=== PATIENT | female | born 1970 | race African-American/Black ===

== ENCOUNTER 2024-06-19 08:55 | Emergency (ER) | payer BC, SELFPAY ==
[2024-06-19 09:06] VITALS: BP 168/100; PULSE 59; RESP 16; TEMP 35.7; O2SAT 98; BMI 32.9
--- NOTE | 2024-06-19 09:26 | ED_ITS ---
HPI - General Adult General Chief complaint: Skin/Abscess/Foreign Body Stated complaint: Facial swelling poss allergic reaction Time Seen by Provider: 06/19/24 08:57 History of Present Illness HPI narrative: [age] year old black female from [place] who works for the [employer] ent presents with left facial swelling. She is in no distress, very pleasant, had some swelling in her left cheek area, she took Benadryl this morning and it got markedly better. She had this about 6 weeks ago as well. She can not really associated any new allergens, new detergents, new food. This happened 6 weeks ago as mention. She is not on an GUSTAVO-inhibitor. Six weeks ago she has stopped amlodipine for blood pressure and her blood pressures been reasonable. It is little bit elevated today. 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 She is planning on seeing an ferry engineer when she returns back to [place], no throat tightening tongue swelling or difficulty breathing. Related Data Home Medications ?Medication ?Instructions ?Recorded ?Confirmed No Known Home Medications 06/19/24 06/19/24 Allergies Allergy/AdvReac Type Severity Reaction Status Date / Time [place] Allergy Verified 06/19/24 09:05 chili Allergy Uncoded 06/19/24 09:05 Review of Systems Status of ROS: Reports: 6 or more systems reviewed and unremarkable except as noted in History and below Exam Narrative: Exam Narrative: Objective: Patient's vital signs are within normal limits with the exception of her blood pressure slightly elevated 160/100, O2 sats 90% on room air Alert or x3 no distress Very pleasant There is some mild swelling over the left mandibular area, no palpable abscess or mass. Patient reports that it is markedly better since taking the Benadryl. Good peripheral perfusion Neurologic nonfocal Const: Vital Signs, click to edit/add: Vital Signs - 24 hr 06/19/24 09:06 Temperature 96.3 F L Pulse Rate [Pulse Oximeter] 59 L Respiratory Rate 16 Blood Pressure [Ri ght Upper Arm] 168/100 H Pulse Oximetry 98 Oxygen Delivery Me thod Room Air Course Vital Signs Vital signs: Initial Vital Signs Temperature 96.3 F L 06/19/24 09:06 Temperature Source Temporal Artery Scan 06/19/24 09:06 Pulse Rate 59 L 06/19/24 09:06 Pulse Rhythm Regular 06/19/24 09:06 Respiratory Rate 16 06/19/24 09:06 Blood Pressure 168/100 H 06/19/24 09:06 Blood Pressure Mean 122 H 06/19/24 09:06 Pulse Oximetry 98 06/19/24 09:06 Oxygen Delivery Method Room Air 06/19/24 09:06 Vital Signs Temperature 96.3 F L 06/19/24 09:06 Pulse Rate 59 L 06/19/24 09:06 Respiratory Rate 16 06/19/24 09:06 Blood Pressure 168/100 H 06/19/24 09:06 Pulse Oximetry 98 06/19/24 09:06 Oxygen Delivery Method Room Air 06/19/24 09:06 Temperature 96.3 F L 06/19/24 09:06 Pulse Rate 59 L 06/19/24 09:06 Respiratory Rate 16 06/19/24 09:06 Blood Pressure 168/100 H 06/19/24 09:06 Pulse Oximetry 98 06/19/24 09:06 Oxygen Delivery Method Room Air 06/19/24 09:06 Medical Decision Making MDM Narrative Medical decision making narrative: 54-year-old female with left facial swelling improved with Benadryl. At this point I think no associated new allergens, not on an GUSTAVO-inhibitor, does appear to be angioedema. At this point I would recommend she try prednisone 50 mg orally then start 20 b.i.d. for 4-5 days. Would have her continue the Benadryl for 3 days cautioned about sedative effect. Think through her potential allergen exposure. She will see an ferry engineer when she returns home. She can return to the ED any time as needed. She was comfortable this plan. Discharge Plan Discharge Clinical Impression: Allergic reaction Patient Disposition: Home, Self-Care Condition: Improved Additional Instructions: Continue the Benadryl 3 times a day over the next 3 days, cautioned about sedative affect and limit driving if possible. Prednisone 20 mg b.i.d. to start tomorrow, will give you a 50 mg dose here in the ER. Recommend he see an ferry engineer when you get home to [place]. Return to the ED as needed. Activity Level: No Restrictions Discharge Diet: Regular Prescriptions: No Action No Known Home Medications Stand Alone Forms: [employer] Info Instructions
== END 2024-06-19 09:48 | disposition home or self-care (01) ==
PROVIDERS: Emergency Provider Family Medicine
DX: R22.0 Localized swelling, mass and lump, head (principal); T78.40XA Allergy, unspecified, initial encounter
CPT/HCPCS: 99283